=== PATIENT | female | born 1995 | race Caucasian/White ===

== ENCOUNTER 2017-02-17 13:29 | Outpatient (CLI) | payer OTHER | END 2017-02-17 13:30 | LOC: POD 13:29 | PROVIDERS: ATTEND Podiatrist | DX: L60.0 Ingrowing nail (principal); L03.031 Cellulitis of right toe | CPT/HCPCS: G0463 ==

== ENCOUNTER 2017-03-13 13:31 | Outpatient (CLI) | payer OTHER | END 2017-03-13 13:32 | LOC: POD 13:31 | PROVIDERS: ATTEND Podiatrist | DX: L60.0 Ingrowing nail (principal) | CPT/HCPCS: 99202 ==